=== PATIENT | female | born 1970 | race Caucasian/White ===

== ENCOUNTER 2017-08-10 23:37 | Emergency (ER) | payer OTHER ==
[~2017-08-10] VITALS: Ht 160 cm; Wt 72.0 kg
[2017-08-10] MEDS ORDERED: IBUP-2070 PO (23:44)
[2017-08-10] MEDS ORDERED: CYCL10 PO (23:44)
[2017-08-11 02:17] LABS: GLUCOSE,POINT OF CARE 102 MG/DL (70-110)
[2017-08-11 03:51] VITALS: BP 128/83
== END 2017-08-11 03:55 | disposition home or self-care (01) ==
LOC: EMS 23:38
DX: S13.4XXA Sprain of ligaments of cervical spine, initial encounter (principal); X50.0XXA Overexertion from strenuous movement or load, initial encounter; Y93.B9 Activity, other involving muscle strengthening exercises; Y92.89 Other specified places as the place of occurrence of the external cause; Y99.8 Other external cause status
CPT/HCPCS: 72040; 82962; 99284